=== PATIENT | male | born 1975 | race Two or more races ===

== ENCOUNTER → 2024-11-26 | Emergency (ER) | payer OTHER ==
[~2024-11-26] VITALS: Ht 177.8 cm; Wt 77.1 kg
[~2024-11-26] MED LIST: CARB30DR18 RIGHTEYE; FLUORESCEIN SODIUM OPHTH 1 EA STRIP ONE
[2024-11-26 17:53] VITALS: BP 131/79; TEMP 98.3; O2SAT 95
== END | disposition home or self-care (01) ==
LOC: ER 19:33
DX: T15.81XA Foreign body in other and multiple parts of external eye, right eye, initial encounter (principal); W44.9XXA Unspecified foreign body entering into or through a natural orifice, initial encounter; Y93.89 Activity, other specified; Y92.89 Other specified places as the place of occurrence of the external cause; Y99.8 Other external cause status